=== PATIENT | male | born 1980 | race Caucasian/White ===

== ENCOUNTER 2017-03-19 20:37 | Emergency (ER) | payer OTHER ==
[2017-03-19 20:51] VITALS: BP 143/84
--- NOTE | 2017-03-19 21:34 | RAD ---
INDICATION: Atraumatic left foot pain. TECHNIQUE: 3 views of the left foot were obtained. FINDINGS: The bones are in normal alignment. No fracture is seen. There is a cornuate navicular bone. There is mild osteoarthritic change in the first metatarsal-phalangeal joint. The remaining joint spaces appear maintained. IMPRESSION: MILD OSTEOARTHRITIC CHANGE IN THE FIRST METATARSAL-PHALANGEAL JOINT.
--- NOTE | 2017-03-19 21:50 | UC ---
Lower Extremity/Ankle HPI - HPI Summary HPI Summary: 36 yo male with pain and swelling of left foot x 1 week no known trauma initially had mid foot pain now primarily the heel hurts to put on and remove work boots - History of Current Complaint Chief Complaint: UCLowerExtremity Stated Complaint: LEFT FOOT PAIN Time Seen by Provider: 03/19/17 20:52 Hx Obtained From: Patient Onset/Duration: Gradual Onset, Lasting Days Severity Initially: Mild Severity Currently: Moderate Pain Intensity: 4 - worse with wt bearing Pain Scale Used: 0-10 Numeric Aggravating Factor(s): Standing, Ambulation Alleviating Factor(s): Rest, Elevation, OTC Meds Able to Bear Weight: Yes - Allergies/Home Medications Allergies/Adverse Reactions: Allergies Allergy/AdvReac Type Severity Reaction Status Date / Time No Known Allergies Allergy Verified 03/19/17 20:51 Home Medications: Home Medications Escitalopram Oxalate [Lexapro 20 mg] 20 mg PO DAILY 03/19/17 [History Confirmed 03/19/17] PMH/Surg Hx/FS Hx/Imm Hx Previously Healthy: Yes - Surgical History Surgical History: None Surgery Procedure, Year, and Place: none - Family History Known Family History: Positive: Hypertension - Social History Alcohol Use: Occasionally Substance Use Type: None Smoking Status (MU): Never Smoked Tobacco - Immunization History Most Recent Tetanus Shot: Review of Systems Constitutional: Negative Skin: Negative Eyes: Negative ENT: Negative Respiratory: Negative Cardiovascular: Negative Gastrointestinal: Negative Genitourinary: Negative Motor: Negative Neurovascular: Negative Musculoskeletal: Arthralgia Neurological: Negative Psychological: Negative All Other Systems Reviewed And Are Negative: Yes Physical Exam Triage Information Reviewed: Yes Appearance: Well-Appearing, No Pain Distress, Well-Nourished Vital Signs: Initial Vital Signs Temp 98.1 F 03/19/17 20:46 Pulse 64 03/19/17 20:46 Resp 16 03/19/17 20:46 BP 143/84 03/19/17 20:46 Pulse Ox 99 03/19/17 20:46 Vital Signs Reviewed: Yes Eyes: Positive: Conjunctiva Clear ENT: Positive: Hearing grossly normal. Negative: Nasal congestion, Nasal drainage, Tonsillar swelling, Tonsillar exudate, Trismus, Muffled/hoarse voice Neck: Positive: Supple, Nontender Respiratory: Positive: Lungs clear, Normal breath sounds, No respiratory distress Cardiovascular: Positive: RRR, No Murmur Musculoskeletal: Positive: Other: - see image Neurological: Positive: Alert Psychological Exam: Normal Skin Exam: Normal Lower Extremity Course/Dx - Differential Dx/Diagnosis Provider Diagnoses: left foot pain of uncertain cause Discharge - Discharge Plan Condition: Stable Disposition: HOME Patient Education Materials: Swollen Joint (ED) Referrals: Willis Luna MD [Medical Doctor] - As Soon As Possible Additional Instructions: I am unsure of the cause of your foot pain and swelling I suggest you try to get in to see Dr. Luna tomorrow Images Feet (Multiple View): 1 - tender 2 - tender 3 - tender
== END 2017-03-19 21:51 | disposition home or self-care (01) ==
LOC: UCCORT 20:37
DX: M25.572 Pain in left ankle and joints of left foot (principal)
CPT/HCPCS: 99211; G0463

== ENCOUNTER 2017-04-26 20:33 | Emergency (ER) | payer SELFPAY ==
[2017-04-26 20:49] VITALS: BP 135/83
--- NOTE | 2017-04-26 22:12 | RAD ---
Indication: Biceps tendon rupture left humerus pain. 2 views of the humerus demonstrates no fracture. No definite soft tissue swelling is noted. IMPRESSION: No fracture of the humerus is noted.
--- NOTE | 2017-04-26 22:31 | UC ---
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 NOW HAS NO TONE IN LEFT BICEPS MUSCLE WHEN FLEXING. - History of Current Complaint Chief Complaint: UCUpperExtremity Stated Complaint: LEFT ARM PAIN Time Seen by Provider: 04/26/17 21:12 Hx Obtained From: Patient, Family/Special Education Inclusion Teacher Onset/Duration: Sudden Onset, Lasting Hours, Still Present Severity Initially: Severe Severity Currently: Moderate Location Of Pain: Is Discrete @ - LEFT BICEPS Character: Dull, Aching Aggravating Factor(s): Movement, Flexion, Extension Alleviating Factor(s): Nothing Associated Signs And Symptoms: Positive: Weakness. Negative: Numbness/Tingling Related History: Dominant Hand Right - Risk Factors Non-Orthopedic Risk Factor: Negative DVT Risk Factors: Negative Septic Arthritis Risk Factor: Negative - Allergies/Home Medications Allergies/Adverse Reactions: Allergies Allergy/AdvReac Type Severity Reaction Status Date / Time No Known Allergies Allergy Verified 04/26/17 20:49 PMH/Surg Hx/FS Hx/Imm Hx Previously Healthy: Yes - Surgical History Surgical History: None Surgery Procedure, Year, and Place: none - Family History Known Family History: Positive: None, Hypertension - Social History Occupation: Employed Full-time Lives: With Family Alcohol Use: Rare Substance Use Type: None Smoking Status (MU): Never Smoked Tobacco - Immunization History Most Recent Tetanus Shot: Review of Systems Constitutional: Negative Skin: Negative Eyes: Negative ENT: Negative Respiratory: Negative Cardiovascular: Negative Gastrointestinal: Negative Genitourinary: Negative Motor: Negative Neurovascular: Negative Musculoskeletal: Myalgia, Other: - LOSS OF TONE LEFT BICEPS Neurological: Negative Psychological: Negative All Other Systems Reviewed And Are Negative: Yes Physical Exam Triage Information Reviewed: Yes Appearance: Well-Appearing, No Pain Distress, Well-Nourished Vital Signs: Initial Vital Signs Temp 98.4 F 04/26/17 20:44 Pulse 67 04/26/17 20:44 Resp 16 04/26/17 20:44 BP 135/83 04/26/17 20:44 Pulse Ox 98 04/26/17 20:44 Vital Signs Reviewed: Yes Eye Exam: Normal ENT Exam: Normal ENT: Positive: Normal ENT inspection Dental Exam: Normal Neck exam: Normal Neck: Positive: Supple, Nontender Respiratory Exam: Normal Respiratory: Positive: Chest non-tender, Lungs clear, Normal breath sounds, No respiratory distress, No accessory muscle use Cardiovascular Exam: Normal Cardiovascular: Positive: RRR, No Murmur, Pulses Normal, Brisk Capillary Refill Abdominal Exam: Normal Musculoskeletal: Positive: ROM Intact, No Edema, Strength Limited @ - LEFT BICEPS Neurological: Positive: Abnormal Muscle Tone - LEFT BICEPS. Negative: Muscle Tone Normal Psychological Exam: Normal Skin Exam: Normal Upper Extremity Course/Dx - Differential Dx/Diagnosis Differential Diagnosis/HQI/PQRI: Fracture (Closed), Strain, Sprain Provider Diagnoses: LEFT BICEPS TENDON TEAR Discharge - Discharge Plan Condition: Stable Disposition: HOME Patient Education Materials: Tendon Rupture (ED) Forms: *Work Release Referrals: [facility] [place] [facility] [Outside] Willis Luna MD [Medical Doctor] - As Soon As Possible No Primary Care Phys,NOPCP [Primary Care Provider] - Additional Instructions: PHYSICAL THERAPY REFERRAL: You have been prescribed physical therapy. Treatments may include stretching, exercise, application of heat or cold, and other modalities. After an injury, PT can reduce swelling and pain. In recovery, PT is used to restore mobility and strength. Your specific treatment goals are: ____X_ Reduction of Swelling (EGS, US, ice as needed) ____X_ Pain Reduction (EGS, US, ice as needed) ____X_ TENS Pack Fitting and Instruction Wound Hydrotherapy ___X__ Preservation of Mobility ___X__ Muslim of Mobility __X___ Strength Muslim __X___ Work or Sports Hardening This instruction sheet also serves as your PHYSICAL THERAPY REFERRAL! Please take it with you to the therapist, so he/she will be aware of your diagnosis and treatment plan. You may see the physical therapist of your choice for these treatments, but may wish to check with your insurance to be sure the provider you select is covered. It's important to see the doctor to whom you have been referred for follow up.
== END 2017-04-26 22:30 | disposition home or self-care (01) ==
LOC: UCCORT 20:33
DX: S46.212A Strain of muscle, fascia and tendon of other parts of biceps, left arm, initial encounter (principal); X50.0XXA Overexertion from strenuous movement or load, initial encounter; Y93.H3 Activity, building and construction; Y92.9 Unspecified place or not applicable; Y99.9 Unspecified external cause status
CPT/HCPCS: 99212; G0463

== ENCOUNTER 2017-05-15 07:15 | Day surgery (SDC) | payer OTHER ==
[~2017-05-15 07:15] MED LIST: Buffered Lidocaine 0.9% SYRIN* 5 ML/SYR SYRINGE INTRADERM ONE; Dexamethasone IV* 4 MG/ML 1 ML (4 MG) IV SLOW PU ONE; Famotidine IV* 10 MG/ML 2 ML (20 mg) IV ONE
[2017-05-15] MEDS ORDERED: Dexamethasone IV* 4 MG/ML 1 ML (4 MG) ONE (07:35)
[2017-05-15] MEDS ORDERED: Famotidine IV* 10 MG/ML 2 ML (20 mg) ONE (07:35)
[2017-05-15] MEDS ORDERED: ceFAZolin 2 GM PREMIX (*) 50 ML IVPB ONE (07:46)
[2017-05-15] MEDS ORDERED: oxyCODONE/Acetamin 5/325 MG* TAB PO PRN (08:39)
[2017-05-15] MEDS ORDERED: PROCHLORPERAZINE INJ 5 MG/ML 2 ML VIAL IV PRN (08:39)
[2017-05-15] MEDS ORDERED: HYDROcodone/ACETAMIN 5-325 MG* 1 TAB PO PRN (08:39)
[2017-05-15] MEDS ORDERED: fentaNYL* 50 MCG/ML 2 ML VIAL (100 MCG VIAL) IV PRN (08:39)
[2017-05-15] MEDS ORDERED: fentaNYL* 50 MCG/ML 5 ML VIAL (250 MCG VIAL) ONE (08:46)
[2017-05-15] MEDS ORDERED: Lidocaine 2% PF * 5 ML VIAL ONE (08:47)
[2017-05-15] MEDS ORDERED: Midazolam* 1 MG/ML 5 ML VIAL (5 MG) ONE (08:47)
[2017-05-15] MEDS ORDERED: Propofol* 10 MG/ML 20 ML BTL IV PUSH ONE (08:47)
[2017-05-15] MEDS ORDERED: Bupivacaine 0.25% SDV* 30 ML ONE (08:59)
[2017-05-15] MEDS ORDERED: Ketorolac INJ* 30 MG/ML 1 ML VIAL ONE (09:19)
[2017-05-15] MEDS ORDERED: KETAMINE HCL* 50 MG/ML 10 ML VIAL ONE (09:37)
[2017-05-15] MEDS ORDERED: fentaNYL* 50 MCG/ML 2 ML VIAL (100 MCG VIAL) ONE (09:50)
[2017-05-15] MEDS ORDERED: Labetalol IV* 5 MG/ML 20 ML VIAL ONE (09:52)
[2017-05-15] MEDS ORDERED: Ondansetron INJ* 2 MG/ML VIAL ONE (09:55)
[2017-05-15] MEDS ORDERED: HYDROcodone/ACETAMIN 5-325 MG* 1 TAB ONE (11:39)
[2017-05-15 12:32] VITALS: BP 138/72
--- NOTE | 2017-05-16 00:22 | OP ---
DATE OF OPERATION: 05/15/17 - [place] [facility] DATE OF : 76 SURGEON: Ghassan Dhillon MD CUSTOMER RELATIONS SPECIALIST: CONNIE Melchor. An assistant distribution manager was needed for the entirety of the procedure to aid in positioning of the arm and retraction. ANESTHESIOLOGIST: Gracia Alvarado MD ANESTHESIA: General. PRE-OP DIAGNOSIS: Left distal biceps tendon rupture. POST-OP DIAGNOSIS: Left distal biceps tendon rupture. OPERATIVE PROCEDURE: Repair of left distal biceps tendon rupture. INDICATIONS: Jamie ruptured the distal biceps tendon on 04/26/17, when he was using a heavy duty janet at work. He saw my partner, Dr. Luna, who got an MRI and sent him to me. He had a distal biceps tendon rupture, I talked to him about treatment options, which include conservative treatment with observation versus repair of the tendon. I explained to him what to expect with each option. He wanted to proceed with surgery. We talked about risks and benefits including risks of PIN nerve injury. ESTIMATED BLOOD LOSS: 10 mL. COMPLICATIONS: None. FINDINGS: Ruptured distal biceps tendon that was held up right at the lacertus. DESCRIPTION OF PROCEDURE: Jamie was seen in the preoperative holding area. The correct site, side, and procedure were identified. We came back to the operating room, anesthesia was induced, the arm was prepped and draped in the usual fashion, and a time-out was performed. The arm was exsanguinated with the Esmarch and the tourniquet inflated to 250 mmHg. I began by making a 2-cm transverse incision in the antecubital flexion crease right over the palpable lump where the distal biceps tendon was at. I bluntly spread down with a Metzenbaum scissors to expose the antebrachial fascia. This was split with the Metzenbaum scissors. Army-Gruver retractors were placed and the distal biceps tendon stump was grabbed with an Allis clamp and pulled up into the wound. The lacertus had been ruptured as well. I then placed an Allis clamp on the end of the tendon and used my finger to release the adhesions circumferentially around the tendon. It has been 3 weeks since the rupture and so there were quite a bit of adhesions. Ultimately, I was able to get these all released without having to make a second incision more proximally. Once I had the tendon mobilized and pulling down nicely with good excursion on the biceps muscle, I went ahead and used a tongue depressor and a 15 blade to debride off the degenerative portion of the tendon. Once I had a nice, clean, healthy tendon edge, I used a #2 FiberWire to perform a whipstitch up the distal 4 to 5 cm of the tendon. I then placed a second whipstitch with # 5 Ethibond. I then clamped off both the sutures and moved the tendon aside. I used the Metzenbaum scissors to spread and release the adhesions. The biceps tendon tracked down to the radial tuberosity. I put my finger down on to the radial tuberosity. I then took a Isabel clamp and slid that between the radial tuberosity and the ulna and out posteriorly. I then flexed the elbow. The clamp was right in the midportion where I had marked my prior incision which was just 3.5 cm distal to the radiocapitellar joint and a centimeter radial to the subcutaneous border of the ulna. I made a 3- to 4-cm incision here. I went down through the subcutaneous tissue to the fascia, this was released longitudinally. I spread the muscle fibers apart to take me down to the supinator. Once I got to the supinator, I could see where the tip of the Isabel clamp was puncturing through the supinator and I went right to that interval with the needle-tip Bovie until the fatty bursa over the radial tuberosity was visualized. I cleaned this off with a rongeur. Retraction throughout the entirety of the case on the posterior incision was with Army-Gruver retractors. I never used baby Hohmann's around the bone. Once I had the bursal tissue all excised, I could fully pronate the forearm and had an excellent view of the radial tuberosity. I could see in its entirety. I used a 4-mm bur to make a longitudinal trough in the radial tuberosity. I then let the forearm come out a little bit of the pronation and used a 2.5-mm drill bit to make 2 bone tunnels through the cortex of the radius adjacent to the trough leaving a 1-cm bone bridge between the 2 holes. The wound was copiously irrigated throughout the creation of the trough and the bone tunnels. All bony fragments were irrigated away and suctioned out. Once I had my bony trough prepared, I used the Isabel clamp to pull a #5 Ethibond suture up into my anterior elbow wound. This was used as a suture shuttle. All 4 tails of the tendon down into the posterior wound. The distal biceps tendon was delivered through the interosseous membrane into the posterior wound. I then the FiberWire and Ethibond sutures. I used a Hewson suture passer, bent to the tip to pull 1 tail of the FiberWire and 1 tail of the Ethibond suture through the proximal and distal holes respectively. I then placed a snap on the tails of the Ethibond suture and pulled significant traction to deliver the tendon into the bony trough. It was nicely seated inside the trough. I then had my assistant distribution manager hold the traction on the Ethibond suture while I tied off the #2 FiberWire suture. After the #2 FiberWire was tied off, I then tied off my #5 Ethibond to complete the repair. Once the sutures were tied, the tendon repair was examined and the tendon was nicely seated inside the bony trough. The elbow was sitting in about 60 degrees of flexion and 30 degrees of supination at rest. The wounds were then copiously irrigated. The fascia on the posterior incision was closed with 2-0 Vicryl suture. Skin was closed with 4-0 nylon suture. My anterior elbow incision was closed with 4-0 nylon suture. 0.25% plain Marcaine was infiltrated into all of the operative areas. The wounds were dressed with Xeroform, 4x4's, Sterile Webril, and a posterior slab with lateral buttress splint was applied holding the elbow in 80 degrees of flexion and 30 degrees of supination. The tourniquet was deflated, the hand pinked up immediately. The patient was then woken up and taken to the recovery room in stable condition. About half an hour after the surgery was over, I examined the patient and the posterior interosseous nerve was working excellently. [id number]/[facility] #: [id number] NANCY
== END 2017-05-15 12:54 | disposition home or self-care (01) ==
LOC: OREAST 07:15
PROVIDERS: ATTEND Orthopaedic Surgery Hand Surgery
DX: S46.212A Strain of muscle, fascia and tendon of other parts of biceps, left arm, initial encounter (principal); X50.0XXA Overexertion from strenuous movement or load, initial encounter; Y92.9 Unspecified place or not applicable
CPT/HCPCS: 88304; J0690; J1100; J1885; J2250; J2405; J2704; J3010

== ENCOUNTER 2017-07-18 21:36 | Emergency (ER) | payer SELFPAY ==
[2017-07-18] MEDS ORDERED: DOXYcycline CAP(*) 100 MG PO ONE (21:43)
--- NOTE | 2017-07-18 21:54 | UC ---
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 has had many Ticks on him---He has body and joint pain now--he also has an abscess with erythema , purulent drainage on left elbow---He reports a recent bicep tendon repair - History of Current Complaint Chief Complaint: UCSkin Time Seen by Provider: 07/18/17 21:38 Stated Complaint: TICK BITE Hx Obtained From: Patient Onset/Duration: Gradual Onset, Lasting Days, Still Present Timing: Constant Onset Severity: Moderate Current Severity: Moderate Location: Discrete - left elbow Character: Redness Aggravating Factor(s): Nothing Alleviating Factor(s): Nothing Associated Signs & Symptoms: Positive: Drainage - abscess right fore arm/elbow, Tenderness - Allergy/Home Medications Allergies/Adverse Reactions: Allergies Allergy/AdvReac Type Severity Reaction Status Date / Time No Known Allergies Allergy Verified 07/18/17 21:45 Review of Systems Constitutional: Negative Skin: Other - draining abscess with erythema right forearm/elbow Eyes: Negative ENT: Negative Respiratory: Negative Cardiovascular: Negative Gastrointestinal: Negative Genitourinary: Negative Motor: Negative Neurovascular: Negative Musculoskeletal: Negative Neurological: Negative Psychological: Negative Is Patient Immunocompromised?: No All Other Systems Reviewed And Are Negative: Yes PMH/Surg Hx/FS Hx/Imm Hx Previously Healthy: Yes - Surgical History Surgical History: Yes Surgery Procedure, Year, and Place: 05/15/2017 left arm tendon repair/Dr. Dhillon - Family History Known Family History: Positive: None, Hypertension - Social History Occupation: Employed Full-time Lives: With Family Alcohol Use: Rare Substance Use Type: None Smoking Status (MU): Never Smoked Tobacco - Immunization History Most Recent Tetanus Shot: Physical Exam Triage Information Reviewed: Yes Appearance: Well-Appearing, No Pain Distress, Well-Nourished Vital Signs: Initial Vital Signs Temp 97.7 F 07/18/17 21:38 Pulse 63 07/18/17 21:38 Resp 18 07/18/17 21:38 BP 152/88 07/18/17 21:38 Pulse Ox 98 07/18/17 21:38 Vital Signs Reviewed: Yes Eye Exam: Normal Eyes: Positive: Conjunctiva Clear ENT Exam: Normal ENT: Positive: Normal ENT inspection, Hearing grossly normal. Negative: Nasal congestion, Nasal drainage, Trismus, Muffled voice, Hoarse voice, Sinus tenderness Dental Exam: Normal Neck exam: Normal Neck: Positive: Supple, Nontender Respiratory Exam: Normal Respiratory: Positive: No respiratory distress, No accessory muscle use Cardiovascular Exam: Normal Cardiovascular: Positive: Pulses Normal, Brisk Capillary Refill Musculoskeletal Exam: Normal Musculoskeletal: Positive: Strength Intact, ROM Intact, No Edema, Other: - full rom left elbow Neurological Exam: Normal Neurological: Positive: Alert, Muscle Tone Normal Psychological Exam: Normal Skin Exam: Normal Skin: Positive: Other - abscess with 3 cm diameter erythema, scabbed center patient reports purulent drainage Course/Dx - Course Course Of Treatment: lyme and cbc, start Doxy to cover Lyme and MRSA follow with Dr. Dhillon (recent surgery) and PCP for Blood Pressure - Diagnoses Provider Diagnoses: Cellulitis left forearm, elevated Blood pressure with out dx of hypertension Discharge - Discharge Plan Condition: Stable Disposition: HOME Prescriptions: DOXYcycline CAP(*) [DOXYcycline 100MG CAP(*)] 100 mg PO BID #28 cap Patient Education Materials: Lyme Disease (ED), Abscess (ED), Warm Compress or Soak (ED) Referrals: [facility] [facility] [place]] - 1 Week Ghassan Dhillon MD [Medical Doctor] - 2 Days
[2017-07-18 21:56] VITALS: BP 152/88
[2017-07-19 11:00] LABS: Hematocrit 47 % (42-52); Hemoglobin 16.2 g/dl (14.0-18.0); Mean Corpuscular HGB Conc 34 g/dl (31-36); Mean Corpuscular Hemoglobin 30 pg (27-31); Mean Corpuscular Volume 88 fL (80-94); Mean Platelet Volume 11 um3 (7.4-10.4); Red Blood Count 5.39 10^6/ul (4.0-5.4); Red Cell Distribution Width 13 % (10.5-15); White Blood Count 8.1 10^3/ul (3.5-10.8)
--- NOTE | 2017-07-20 07:52 | ED ---
Progress - Progress Note Progress Note: no acute changes on cbc Course/Dx - Course Course Of Treatment: lyme and cbc, start Doxy to cover Lyme and MRSA follow with Dr. Dhillon (recent surgery) and PCP for Blood Pressure - Diagnoses Provider Diagnoses: Tick bite
== END 2017-07-18 21:59 | disposition home or self-care (01) ==
LOC: UCCORT 21:36
DX: L03.114 Cellulitis of left upper limb (principal); R03.0 Elevated blood-pressure reading, without diagnosis of hypertension
CPT/HCPCS: 36415; 85025; 86618; 99212; A9270-GY; G0463

== ENCOUNTER 2018-06-30 15:20 | Emergency (ER) | payer BC ==
[2018-06-30 15:38] VITALS: BP 166/97
--- NOTE | 2018-06-30 16:27 | UC ---
Respiratory Complaint HPI - HPI Summary HPI Summary: Pt c/o sudden onset cough, wheezing, generalized malaise X 2 days. - History of Current Complaint Chief Complaint: UCRespiratory Stated Complaint: UPPER RESPIRATORY Time Seen by Provider: 06/30/18 16:19 Hx Obtained From: Patient Onset/Duration: Sudden Onset, Lasting Days, Still Present Timing: Constant Severity Initially: Mild Severity Currently: Moderate Pain Intensity: 4 Character: Cough: Productive Aggravating Factors: Exertion, Deep Breaths, Recumbent Position Alleviating Factors: Nothing Associated Signs And Symptoms: Positive: Chills, Wheezing, URI, Nasal Congestion - Risk Factors Pulmonary Embolism Risk Factors: Negative Cardiac Risk Factors: Negative Pseudomonas Risk Factors: Negative Tuberculosis Risk Factors: Negative - Allergies/Home Medications Allergies/Adverse Reactions: Allergies Allergy/AdvReac Type Severity Reaction Status Date / Time No Known Allergies Allergy Verified 06/30/18 15:38 PMH/Surg Hx/FS Hx/Imm Hx Previously Healthy: Yes - Surgical History Surgical History: None Surgery Procedure, Year, and Place: none - Family History Known Family History: Positive: Hypertension - Social History Occupation: Employed Full-time Lives: With Family Alcohol Use: Rare Substance Use Type: None Smoking Status (MU): Never Smoked Tobacco Have You Smoked in the Last Year: No - Immunization History Most Recent Tetanus Shot: Review of Systems Constitutional: Negative Skin: Negative Eyes: Negative ENT: Negative Respiratory: Shortness Of Breath, Cough Cardiovascular: Negative Gastrointestinal: Negative Genitourinary: Negative Motor: Negative Neurovascular: Negative Musculoskeletal: Negative Neurological: Negative Psychological: Negative Is Patient Immunocompromised?: No All Other Systems Reviewed And Are Negative: Yes Physical Exam Triage Information Reviewed: Yes Appearance: Ill-Appearing Vital Signs: Initial Vital Signs Temp 97.9 F 06/30/18 15:33 Pulse 66 06/30/18 15:33 Resp 16 06/30/18 15:33 BP 166/97 06/30/18 15:33 Pulse Ox 97 06/30/18 15:33 Vital Signs Reviewed: Yes Eye Exam: Normal ENT Exam: Other ENT: Positive: Nasal congestion Dental Exam: Normal Neck exam: Normal Respiratory: Positive: Wheezing Cardiovascular Exam: Normal Musculoskeletal Exam: Normal Neurological Exam: Normal Psychological Exam: Normal Skin Exam: Normal UC Diagnostic Evaluation - Laboratory O2 Sat by Pulse Oximetry: 97 Respiratory Course/Dx - Differential Dx/Diagnosis Differential Diagnosis/HQI/PQRI: Bronchitis, Influenza, Other - pneumonia Provider Diagnoses: bronchitis Discharge - Sign-Out/Discharge Documenting (check all that apply): Patient Departure All imaging exams completed and their final reports reviewed: No Studies - Discharge Plan Condition: Stable Disposition: HOME Prescriptions: Azithromycin TAB* [Zithromax TAB (Z-BRIDGET) 250 mg #6 tabs] 2 tab PO .TODAY, THEN 1 DAILY #1 bridget predniSONE TAB* [Deltasone 20 MG TAB*] 20 mg PO DAILY #4 tab Patient Education Materials: Acute Bronchitis (ED), Wheezing (ED) Referrals: [facility] [Outside] - If Needed No Primary Care Phys,NOPCP [Primary Care Provider] - - Billing Disposition and Condition Condition: STABLE Disposition: Home
== END 2018-06-30 16:35 | disposition home or self-care (01) ==
LOC: UCCORT 15:20
DX: J40 Bronchitis, not specified as acute or chronic (principal)
CPT/HCPCS: 99212; G0463

== ENCOUNTER 2019-12-10 19:11 | Emergency (ER) | payer BC ==
[2019-12-10 19:23] VITALS: BP 143/87
--- NOTE | 2019-12-10 19:37 | UC ---
Skin Complaint HPI - HPI Summary HPI Summary: 39-year-old male who states that he's had intermittent numbness of his hands over the past 6 months. He also states that he has some facial hair loss on the right side of his [place]var[place]. He denies any other alopecia. He complains of an area on his mid back approximately 5 cm in diameter that "feels different". Is not have a primary care provider, he states that "I just come here". - History of Current Complaint Chief Complaint: UCGeneralIllness Time Seen by Provider: 12/10/19 19:16 Stated Complaint: NUMBNESS HAIRLOSS Hx Obtained From: Patient Onset/Duration: Gradual Onset, Lasting Weeks, Still Present Skin Exposure Onset/Duration: Weeks Ago Timing: Intermittent Episodes Lasting: - The occasional paresthesias are intermittent. Onset Severity: Mild Current Severity: Mild Pain Intensity: 1 Location: Other - Right side of alvarado with hair loss and mid back with skin that feels different according to the patient. - Allergy/Home Medications Allergies/Adverse Reactions: Allergies Allergy/AdvReac Type Severity Reaction Status Date / Time No Known Allergies Allergy Verified 12/10/19 19:18 PMH/Surg Hx/FS Hx/Imm Hx Previously Healthy: Yes - Surgical History Surgical History: None Surgery Procedure, Year, and Place: none - Family History Known Family History: Positive: None, Hypertension - Social History Occupation: Employed Full-time Alcohol Use: Rare Substance Use Type: None Smoking Status (MU): Never Smoked Tobacco Have You Smoked in the Last Year: No - Immunization History Most Recent Tetanus Shot: Review of Systems All Other Systems Reviewed And Are Negative: Yes Skin: Positive: Other - Hair loss right side of [place] about size of a quarter which he states he awakened one day and it was there. He states the hair loss has been there approximately one month. Neurological/Mental Status: Positive: Paresthesia, Numbness - Patient states he experiences occasional paresthesia and numbness in his extremities. This does not affect his ability to walk or function normally. Is Patient Immunocompromised?: No Physical Exam Triage Information Reviewed: Yes Appearance: Well-Appearing, No Pain Distress, Well-Nourished Vital Signs: Initial Vital Signs Temp 97.5 F 12/10/19 19:19 Pulse 71 12/10/19 19:19 Resp 15 12/10/19 19:19 BP 143/87 12/10/19 19:19 Pulse Ox 98 12/10/19 19:19 Vital Signs Reviewed: Yes Eyes: Positive: Conjunctiva Clear ENT: Positive: Pharynx normal, TMs normal, Uvula midline Neck: Positive: Supple, Nontender, No Lymphadenopathy Respiratory: Positive: Lungs clear, Normal breath sounds, No respiratory distress, No accessory muscle use Cardiovascular: Positive: RRR, No Murmur, Pulses Normal, Brisk Capillary Refill Musculoskeletal: Positive: Strength Intact, ROM Intact, Other: - Full range of motion, good arm and leg strength against resistance. Good peripheral pulses, neuro sensation and capillary refill. Neurological Exam: Normal Psychological Exam: Normal Skin: Positive: Other - Patient has an area of alopecia to the right side of his [place] measuring approximately 1.5 cm in diameter. Skin color is normal. The area of concern in the patient's mid back where he states the skin feels different, appears normal. It's nontender. There are no abnormal lesions. Course/Dx - Course Course Of Treatment: The patient is comfortable here and not experiencing any numbness or paresthesias presently. I advised him to establish care with a local physician who can follow through with any possible lab work. I also advised him to go to [facility] in the next week or 2 if he has any worsening of symptoms. I also referred him to the local home health nurse licensed practical for follow-up regarding his skin concerns. Patient is agreeable to doing this. - Diagnoses Provider Diagnosis: Alopecia, Paresthesia of both hands Discharge ED - Sign-Out/Discharge Documenting (check all that apply): Patient Departure All imaging exams completed and their final reports reviewed: No Studies - Discharge Plan Condition: Good Disposition: HOME Patient Education Materials: Paresthesia (ED) Referrals: [facility] [Outside] Michelle Hernandez [Medical Doctor] - No Primary Care Phys,NOPCP [Primary Care Provider] - Additional Instructions: It is important that you establish care with a primary care provider for follow- up. However you can call the home health nurse licensed practical and make an appointment regarding your skin concerns. - Billing Disposition and Condition Condition: GOOD Disposition: Home
== END 2019-12-10 19:48 | disposition home or self-care (01) ==
LOC: UCCORT 19:11
DX: L65.9 Nonscarring hair loss, unspecified (principal); R20.0 Anesthesia of skin
CPT/HCPCS: 99211; G0463